=== PATIENT | male | born 1990 | race Two or more races ===

== ENCOUNTER 2016-12-25 13:09 | Emergency (ER) | payer MEDICAID ==
[2016-12-25 13:27] VITALS: BP 141/87; PULSE 86; RESP 18; TEMP 98; O2SAT 96
--- NOTE | 2016-12-25 13:44 | UCPHY ---
H & P Time Seen by Provider: 12/25/16 13:31 Patient Type: Established HPI/ROS: This patient presented with swelling to the right upper eyelid for approximately a week prior to onset of lower eyelid/infraorbital region erythema. He reports associated swelling to the infraorbital region today with mild discomfort to both areas. He has never had this occur before. He notes no other associated symptoms. He has partial relief from [id number] analgesics. No other exacerbating or alleviating factors. ROS: No fevers or other constitutional symptoms. HEENT: No ocular symptoms. The symptoms are isolated to the eyelid and infraorbital region. No nasal congestion. No purulent drainage from the eye. No sinus pain. Neuro: No headache. 5 point ROS is otherwise negative Past Medical/Surgical History: Otherwise healthy Smoking Status: Current some day smoker Physical Exam: Physical Exam Vital signs are normal. General: No acute distress HEENT: Right upper eyelid mild edema and erythema the center of the eyelid without fluctuance. There is no eye discharge. I lashes appear normal. Left lower eyelid mild erythema that extends to the infraorbital region with slight warmth to touch but no fluctuance. Again lashes normal. Eyes: Pupils equal and react to light. Extraocular motions are intact. No conjunctival injection or discharge. Lungs: No respiratory distress. Neck: Supple Cardiac: Brisk capillary refill is intact throughout. Skin: No rash or pallor. Neuro: Alert and oriented x3 with no sensorimotor deficits. Constitutional: Initial Vital Signs Temperature (C) 36.6 C 12/25/16 13:23 Heart Rate 86 12/25/16 13:23 Respiratory Rate 18 12/25/16 13:23 Blood Pressure 141/87 H 12/25/16 13:23 O2 Sat (%) 96 12/25/16 13:23 O2 Delivery Mode Room Air Allergies/Adverse Reactions: No Known Allergies Allergy (Verified 10/07/15 08:01) Home Medications: Medication Instructions Recorded Doxycycline Hyclate [Vibramycin 100 mg PO BID #20 cap 12/25/16 100 MG (*)] Erythromycin 0.5% 1 fiordaliza RTEYE BID #5 g 12/25/16 Medical Decision Making ED Course/Re-evaluation: This patient appears clinically well. The lower eyelid erythema extends slightly below the eyelid into the infraorbital region but does not seem to represent a jered periorbital cellulitis. No evidence of ocular involvement. Departure - Departure Disposition: Home, Routine, Self-Care Clinical Impression: Blepharitis of eyelid of right eye Qualifiers: Blepharitis type: unspecified type Eyelid: lower Qualified Code(s): H01.002 - Unspecified blepharitis right lower eyelid Condition: Good Instructions: Blepharitis (ED) Additional Instructions: Diagnosis: Blepharitis and DrPeace cystitis right eyelid Plan: Apply warm packs 3 times a day Erythromycin ointment 0 eyelids and doxycycline in addition. Continue probiotics: Doxycycline Follow up with the search specialist listed below if your symptoms are not improving over the next 4-5 days with treatment plan. Go to the emergency department for any significant worsening of symptoms despite the treatment plan Referrals: Jorge Dawkins [Medical Doctor] - As per Instructions Prescriptions: Doxycycline Hyclate [Vibramycin 100 MG (*)] 100 mg PO BID #20 cap Erythromycin 0.5% 1 fiordaliza RTEYE BID #5 g - PQRS PQRS Measurement: NA
== END 2016-12-25 13:58 | disposition home or self-care (01) ==
LOC: CED 13:09
DX: H01.002 Unspecified blepharitis right lower eyelid (principal); Z72.0 Tobacco use
CPT/HCPCS: G0463-PO

== ENCOUNTER 2017-01-30 09:23 | Emergency (ER) | payer MEDICAID ==
[2017-01-30 09:37] VITALS: BP 146/82; PULSE 88; RESP 18; TEMP 98; O2SAT 97
--- NOTE | 2017-01-30 09:50 | EDPHY ---
H & P Stated Complaint: LLQ pain on and off x 1 month- denies trauma Time Seen by Provider: 01/30/17 09:46 HPI/ROS: CHIEF COMPLAINT: Inguinal hernia HISTORY OF PRESENT ILLNESS: Patient is a 27-year-old man who is status post bilateral inguinal hernia repair at the age of 4. He states that over the last month or 2 the incision region over the left inguinal canal has been mildly tender when lifting. He does not feel a bulge. It does not hurt when he is at rest. He has not had a fever. No difficulty urinating. No difficulty having a bowel movement. No abdominal tenderness. No fevers. No testicular pain or swelling. REVIEW OF SYSTEMS: Constitutional: denies: chills, fever, recent illness, recent injury EENTM: denies: blurred vision, double vision, nose congestion Respiratory: denies: cough, shortness of breath Cardiac: denies: chest pain, irregular heart rate, lightheadedness, palpitations Gastrointestinal/Abdominal: See HPI, denies abdominal pain, nausea, vomiting diarrhea. Genitourinary: denies: dysuria, frequency, hematuria, pain Musculoskeletal: denies: joint pain, muscle pain Skin: denies: lesions, rash, jaundice, bruising Neurological: denies: headache, numbness, paresthesia, tingling, dizziness, weakness Hematologic/Lymphatic: denies: blood clots, easy bleeding, easy bruising Immunologic/allergic: denies: HIV/AIDS, transplant EXAM: GENERAL: Well-appearing, well-nourished and in no acute distress. HEAD: Atraumatic, normocephalic. EYES: Pupils equal round and reactive to light, extraocular movements intact, sclera anicteric, conjunctiva are normal. ENT: TMs normal, nares patent, oropharynx clear without exudates. Moist mucous membranes. NECK: Normal range of motion, supple without lymphadenopathy or JVD. LUNGS: Breath sounds clear to auscultation bilaterally and equal. No wheezes rales or rhonchi. HEART: Regular rate and rhythm without murmurs, rubs or gallops. ABDOMEN: No palpable hernia. No tenderness at the region. No erythema or swelling. Soft, nontender, normoactive bowel sounds. No guarding, no rebound. No masses appreciated. BACK: No CVA tenderness, no spinal tenderness, step-offs or deformities EXTREMITIES: Normal range of motion, no pitting or edema. No clubbing or cyanosis. NEUROLOGICAL: Cranial nerves II through XII grossly intact. Normal speech, normal gait. 5/5 strength, normal movement in all extremities, normal sensation PSYCH: Normal mood, normal affect. SKIN: Warm, dry, normal turgor, no visible rashes or lesions. Source: Patient Exam Limitations: No limitations - Personal History Current Tetanus Diphtheria and Acellular Pertussis (TDAP): Yes Tetanus Vaccine Date: within 10 yrs - Medical/Surgical History Hx Asthma: No Hx Chronic Respiratory Disease: No Hx Diabetes: No Hx Cardiac Disease: No Hx Renal Disease: No Hx Cirrhosis: No Hx Alcoholism: No Hx HIV/AIDS: No Hx Splenectomy or Spleen Trauma: No Other PMH: hernia - Family History Significant Family History: No pertinent family hx - Social History Smoking Status: Current some day smoker Alcohol Use: Sober Drug Use: None Constitutional: Initial Vital Signs Temperature (C) 36.6 C 01/30/17 09:35 Heart Rate 88 01/30/17 09:35 Respiratory Rate 18 01/30/17 09:35 Blood Pressure 146/82 H 01/30/17 09:35 O2 Sat (%) 97 01/30/17 09:35 O2 Delivery Mode Room Air Allergies/Adverse Reactions: No Known Allergies Allergy (Verified 10/07/15 08:01) Home Medications: Medication Instructions Recorded NK [No Known Home Meds] 01/30/17 Medical Decision Making ED Course/Re-evaluation: patient is having mild chronic pain at the site of a remote inguinal hernia repair. No abdominal tenderness. No bowel or bladder abnormalities. I suspect that he has some mild dehiscence of his hernia repair. It is not incarcerated. Patient is currently asymptomatic. I will refer him to surgery. Differential Diagnosis: Partial list of the Differential diagnosis considered include but were not limited to; inguinal hernia, wound dehiscence and although unlikely based on the history and physical exam, I also considered incarceration, infection, kidney stone, urinary tract infection, STD, torsion. I discussed these differential diagnoses and the plan with the patient as well as the usual and expected course. The patient understands that the diagnosis is provisional and that in medicine we are not always correct and that further workup is often warranted. Usual and customary warnings were given. All of the patient's questions were answered. The patient was instructed to return to the emergency department should the symptoms at all worsen or return, otherwise to followup with the physician as we discussed. Departure - Departure Disposition: Home, Routine, Self-Care Clinical Impression: Hernia Condition: Fair Instructions: Inguinal Hernia (ED) Referrals: Clifford Rich MD [Medical Doctor] - As per Instructions
== END 2017-01-30 09:55 | disposition home or self-care (01) ==
LOC: CED 09:23
DX: K46.9 Unspecified abdominal hernia without obstruction or gangrene (principal); F17.200 Nicotine dependence, unspecified, uncomplicated

== ENCOUNTER 2017-04-17 16:19 | Emergency (ER) | payer MEDICAID ==
--- NOTE | 2017-04-17 16:42 | EDPHY ---
H & P Time Seen by Provider: 04/17/17 16:27 HPI/ROS: HPI Hernia recheck, increased frequency with urination. 27-year-old male by private vehicle. He works as a personal chef. He underwent bilateral inguinal hernia repairs when he was 3 years old. He was seen in our emergency department on January 30 of this year to evaluate for some left inguinal discomfort and concern regarding his hernias. He has a benign exam at that time and was discharged with outpatient surgery follow-up with Dr. Clifford Rich. He reports that he missed 2 follow-up appointments with Dr. Rich and they would not reschedule him. He presents complaining of the same mild left lower inguinal/abdominal area discomfort which she has had on and off for years. 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 He is wanting this rechecked and wanting a no other referral to a general surgeon. He also reports that he has had some increased frequency with urination but denies any burning or discharge. No penile lesions. No other complaints. ROS: Constitutional: No fever, no chills. No weakness. Eyes: No discharge. No changes in vision. ENT: No sore throat. No nasal congestion or rhinorrhea. Respiratory: No cough. No shortness of breath. Cardiac: No chest pain, no palpitations. Gastrointestinal: No abdominal pain, no vomiting, no diarrhea. Genitourinary: No hematuria. No dysuria or increased frequency with urination. Musculoskeletal: No back pain. No neck pain. No myalgias or arthralgias. Skin: No rashes. Neurological: No headache. No focal weakness or altered sensation. Past medical history: As above. Social history: Here by himself. Nonsmoker. As above. Physical Exam: General Appearance: Alert, no distress. This patient is responding to questions appropriately and in full sentences. This patient appears well- hydrated and well-nourished. Eyes: Pupils equal and round no pallor or injection. No lid edema, erythema or injection. Gastrointestinal: Abdomen is soft and nontender, he has 2 linear scars bilateral inguinal areas. On palpation of the left side which which is where he complains of discomfort there are no masses appreciated and no significant tenderness on palpation. No soft tissue changes such as erythema, ecchymosis, warmth or edema. His bowel sounds normal. No focal tenderness at McBurney's point. No Negron sign. : Normal male genitalia. No lesions. Normal testicular lie. No discharge from the penile meatus. Digital exam for inguinal hernia negative bilaterally. Neurological: Motor sensory function is grossly intact. Cranial nerves are normal. Gait is normal. Skin: Warm and dry, no rashes. Musculoskeletal: Neck is supple and nontender. Extremities are symmetrical. All joints range without pain or impingement. Psychiatric: No agitation. No depression. Database: EKG: Imaging: Procedures: Emergency department course: Urine sample will be obtained for urinalysis as well as testing for GC and chlamydia. His vital signs have been reviewed and are normal. I will not treat for STD empirically. He is in agreement. We will wait for his test results to return and treat if positive. 5:55 p.m., patient re-evaluated. Urinalysis reviewed. This is normal. GC and chlamydia testing sent. Patient will follow up on the results of this in 2 days. He feels comfortable going home. He is asymptomatic. He understands his follow-up. Return to emergency department precautions discussed with his full understanding. Patient discharged in good condition. Differential Diagnosis: The differential diagnosis on this patient includes but is not limited to history of inguinal hernias. Urinary tract infection, STD unlikely. Strangulated hernia, incarcerated hernia unlikely. This represents a partial list of diagnoses considered. These considerations are based on history, physical exam, past history, reassessment and diagnostic testing. Smoking Status: Current some day smoker Constitutional: Initial Vital Signs Temperature (C) 36.7 C 04/17/17 16:31 Heart Rate 75 04/17/17 16:31 Respiratory Rate 16 04/17/17 16:31 Blood Pressure 149/93 H 04/17/17 16:31 O2 Sat (%) 95 04/17/17 16:31 O2 Delivery Mode Room Air Allergies/Adverse Reactions: No Known Allergies Allergy (Verified 04/17/17 16:33) Home Medications: Medication Instructions Recorded NK [No Known Home Meds] 01/30/17 Medical Decision Making - Data Points Laboratory Results: 04/17/17 04/17/17 17:10 17:10 Urine Color YELLOW Urine Appearance CLEAR Urine pH 7.0 (5.0-7.5) Ur Specific [place] <= 1.005 (1.002-1.030) Urine Protein NEGATIVE (NEGATIVE) Urine Ketones NEGATIVE (NEGATIVE) Urine Blood NEGATIVE (NEGATIVE) Urine Nitrate NEGATIVE (NEGATIVE) Urine Bilirubin NEGATIVE (NEGATIVE) Urine Urobilinogen 0.2 EU EU (0.2-1.0) Ur Leukocyte Esterase NEGATIVE (NEGATIVE) Urine RBC NONE SEEN /hpf /hpf (0-3) Urine WBC NONE SEEN /hpf /hpf (0-3) Ur Epithelial Cells TRACE /lpf /lpf (NONE-1+) Urine Glucose NEGATIVE (NEGATIVE) C.trachomatis RNA (TMA) Pending N.gonorrhoeae RNA (TMA) Pending Departure - Departure Disposition: Home, Routine, Self-Care Clinical Impression: Evaluate for hernia, History of inguinal hernia Condition: Good Instructions: Inguinal Hernia (ED) Additional Instructions: Read and follow provided instructions. Follow-up with Dr. Jose Angel Duran this week for evaluation of your inguinal hernia repairs. Call his office tomorrow morning and schedule an appointment. The results of your urine tests as discussed will be available in 2 days. Call for test results. Return to the emergency department for worsening pain, swelling, discoloration, fever, vomiting or other serious concerns. Referrals: Jose Angel Duran MD [Medical Doctor] - As per Instructions
[2017-04-17 17:17] LABS: COLOR YELLOW; LEUKOCYTE ESTERASE,URINE NEGATIVE (NEGATIVE); NITRITE,URINE NEGATIVE (NEGATIVE)
[2017-04-17 17:24] LABS: RBC,URINE NONE SEEN /hpf (0-3); WBC,URINE NONE SEEN /hpf (0-3)
[2017-04-17 17:27] VITALS: RESP 18; TEMP 98
[2017-04-17 18:02] VITALS: BP 115/62; PULSE 74; O2SAT 96
[2017-04-18 14:25] LABS: CHLAMYDIA AMPLIFICATION GENPRB NEGATIVE (NEGATIVE)
== END 2017-04-17 18:01 | disposition home or self-care (01) ==
LOC: CED 16:19
DX: R10.32 Left lower quadrant pain (principal); F17.200 Nicotine dependence, unspecified, uncomplicated; Z48.815 Encounter for surgical aftercare following surgery on the digestive system
CPT/HCPCS: 81003-PO; 81015-PO